=== PATIENT | male | born 1975 | race Caucasian/White ===

== ENCOUNTER 2020-09-23 06:49 | Outpatient (CLI) | payer OTHER, SELFPAY ==
--- NOTE | 2020-09-23 07:01 | US_ITS ---
WS: [id number] ULTRASOUND ABDOMEN LIMITED CLINICAL INFORMATION: ABDOMINAL PAIN, EVAULATE FOR UMBILICAL HERNIA COMPARISON: None. FINDINGS: Fat-containing umbilical hernia. No herniated bowel. Liver Size: Enlarged Craniocaudal length: 19.2 cm. Echogenicity: Normal. Surface nodularity: None. Mass (size and location): None. Bile ducts Intrahepatic ducts: Normal. Common bile duct diameter: 0.7 cm. Gallbladder Normal. Gallstones: None. Gallbladder sludge: None. Gallbladder wall thickening: None. Pericholecystic fluid: None. Sonographic Kaiser sign: Absent. Pancreas Normal as visualized. Right kidney: Normal. Hydronephrosis: None. Size: 11.7 cm x 7.3 cm x 5.9 cm. Abdominal aorta and IVC Visualized portions are normal. Ascites: None. US/US abdomen limited [id number] IMPRESSION: 1. Hepatomegaly with diffuse fatty infiltration. 2. Normal gallbladder and common bile duct. 3. No hydronephrosis in right kidney. 4. Fat-containing umbilical hernia. No herniated bowel.
== END 2020-09-23 06:50 | disposition home or self-care (01) ==
LOC: RAD 06:54
PROVIDERS: PCP Nurse Practitioner Family; Visit Provider Nurse Practitioner Family
DX: R10.9 Unspecified abdominal pain (principal); R16.0 Hepatomegaly, not elsewhere classified; K76.89 Other specified diseases of liver; K42.9 Umbilical hernia without obstruction or gangrene
CPT/HCPCS: 76705

== ENCOUNTER → 2020-10-10 08:07 | Outpatient (BNVA) | payer OTHER, SELFPAY | PROVIDERS: PCP Nurse Practitioner Family; Visit Provider Surgery | DX: Z20.822 Contact with and (suspected) exposure to COVID-19 (principal) | CPT/HCPCS: 87635 ==

== ENCOUNTER → 2020-10-11 14:06 | Outpatient (BNVA) | payer OTHER, SELFPAY | PROVIDERS: PCP Nurse Practitioner Family; Visit Provider Surgery | DX: Z01.812 Encounter for preprocedural laboratory examination (principal); Z20.822 Contact with and (suspected) exposure to COVID-19 | CPT/HCPCS: 87635 ==

== ENCOUNTER 2020-10-14 08:14 | Day surgery (SDC) | payer OTHER, SELFPAY ==
[2020-10-11 12:56] VITALS: BMI 36.3
[2020-10-14] VITALS (11 sets, daily range): BP systolic 123–149; BP diastolic 77–98; PULSE 59–76; RESP 15–19; TEMP 36.8–36.9; O2SAT 97–100
[2020-10-14] MEDS: sodium chloride 0.9% 1,000 ML 30 ML IV (09:00)
--- NOTE | 2020-10-14 09:07 | W.PM.OPSUD ---
Surgery/Procedure H&P Update DATE OF PROCEDURE: October 14, 2020 DATE H&P PERFORMED: 10/08/20 H&P UPDATE INFORMATION: I have reviewed H&P completed within last 30 days, I have examined patient prior to procedure and No changes to prior documentation PREOP DIAGNOSIS: Incarcerated umbilical hernia PLANNED PROCEDURE: Operation Date: 10/14/20 09:50 Proposed Procedures p Open Umbilical Hernia Repair w/ Mesh 06829 K42.0(Not Applicable) - Matty Pierre MD
--- NOTE | 2020-10-14 09:13 | ANES.PREANE2 ---
Pre-Anesthetic Assessment Pre-Anesthetic Assessment: Height/Weight: Height 1.68 m Weight 102.058 kg Temp Pulse Resp BP Pulse Ox 98.2 F 72 18 142/95 99 10/14/20 08:35 10/14/20 08:35 10/14/20 08:35 10/14/20 08:35 10/14/20 08:35 Preop Diagnosis: Incarcerated umbilical hernia Proposed Procedure: Operation Date: 10/14/20 09:50 Proposed Procedures p Open Umbilical Hernia Repair w/ Mesh 11903 K42.0(Not Applicable) - Matty Pierre MD Familial anesthetic complications: none Was Beta Fariba taken within 24 hours: N/A Was Clonidine taken within 24 hours: N/A Last intake: Intake Last Liquid Date 10/13/20 Last Liquid Time 23:30 Last Solid Date 10/13/20 Last Solid Time 19:30 Social: Social History: Tobacco and No alcohol Exam: Pre-Anes Outpt Exam: alert, oriented x 3, clear to auscultation bilaterally and regular rate & rhythm Airway: Cervical ROM: WNL MP: 1 Dentition: Full CV/HEM: CV/HEM: HTN GI: GI: GERD Metabolic: Metabolic: Hyperlipidemia and Morbid obesity Anesthetic Plan: ASA status: 2 Anesthesia: General Risk of > 500 ml blood loss (7ml/kg in children): No Meds/Allergies Current Medications: Current Medications Generic Name Dose Route Start Last Admin Trade Name Freq PRN Reason Stop Dose Admin Sodium Chloride 1,000 mls @ 30 ml s/hr 10/14/20 08:30 10/14/20 09:00 Sodium Chloride 0.9% IV 10/15/20 08:29 30 mls/hr .Q24H YSABEL Administration PFSH Anesthesia PFSH: Medical History GERD (gastroesophageal reflux disease) Hypertension Surgical History H/O esophagogastroduodenoscopy History of left inguinal hernia repair Family History Denies family history of Anesthesia complication Bleeding disorder Data Anesthesia Cardiac Studies: No Data to Display
--- NOTE | 2020-10-14 10:42 | SUR.PHASEI ---
PT AWAKE ALERT TAKING ICE CHIPS PT STATES ( SOME PAIN ) TO ABD BUT MOSTLY (FEELS STRANGE) PT OK WITH TAKING PO PAIN MED IN OPS. REPORT TO OPS NURSE.
[2020-10-14] MEDS: HYDROcodone-acetaminophen 5-325 mg Tablet 1 TAB PO (11:19)
--- NOTE | 2020-10-14 13:13 | P.OP_ITS ---
Operative Report Date of procedure: October 14, 2020 Pre-op Diagnosis: Incarcerated umbilical hernia Post-op Diagnosis: 2 x 2 centimeter incarcerated umbilical hernia containing omentum Procedure Done: Open primary repair of umbilical hernia Pathology: none sent Surgeon: Matty Pierre Anesthesia: General Condition: stable Disposition: PACU Procedure: The patient was taken to the operating room and intubated under general anesthesia after IV antibiotic had been administered. The abdomen was prepped and draped in a sterile manner. A 2 cm infraumbilical curvilinear incision was made using a 15 blade, a hernial sac dissected out using electro cautery and dissection with hemostats. The hernial sac was opened and omentum was reduced into the peritoneal cavity and the sac was excised. Interrupted sutures using 0 Vicryl was used to close the hernial defect without any tension. The subcutaneous tissue was approximated using 3-0 Vicryl and skin was closed using running subcuticular 4-0 Monocryl sutures. Dermabond was then applied and 10 mL of 0.5% Marcaine was infiltrated around the incision. A 2 x 2 gauze was then placed within the umbilicus and sterile dressings are applied. The patient was stable throughout the procedure.
--- NOTE | 2020-10-14 15:13 | ANE.PACU2 ---
Inpatient post-anesthesia follow up: Airway intact: Yes Vital signs: Temperature 98.5 F Pulse Rate 59 Respiratory Rate 15 Blood Pressure 123/77 Pulse Oximetry 100 Oxygen Delivery Me thod Room Air Oxygen Flow Rate 3 Fraction of Inspir ed Oxygen Hydration adequate: Yes Nausea and vomiting: No Pain level: 2 Mental status: Baseline
== END 2020-10-14 11:39 | disposition home or self-care (01) ==
PROVIDERS: PCP Nurse Practitioner Family; Visit Provider Surgery
PROC: (CPT 49587; principal; 2020-10-14 09:50)
DX: K42.0 Umbilical hernia with obstruction, without gangrene (principal); I10 Essential (primary) hypertension; K21.9 Gastro-esophageal reflux disease without esophagitis; E78.5 Hyperlipidemia, unspecified; E66.01 Morbid (severe) obesity due to excess calories; Z68.36 Body mass index [BMI] 36.0-36.9, adult
CPT/HCPCS: 49587; J0690; J1100; J2405; J2704; J2710; J3010; J3490; J7030

== ENCOUNTER 2021-07-10 03:23 | Emergency (ER) | payer OTHER, SELFPAY ==
[2021-07-10 03:29] VITALS: BP 145/93; PULSE 89; RESP 20; TEMP 36.6; O2SAT 100; BMI 35.2
--- NOTE | 2021-07-10 03:39 | CTR_ITS ---
PROCEDURE INFORMATION: Exam: CT Abdomen And Pelvis Without Contrast Exam date and time: 07/10/2021 4:07 AM Age: 45 years old Clinical indication: Abdominal pain; Prior surgery; Surgery type: Hernia repair; Patient HX: C/O left flank pain with nausea. ; Additional info: L flank pain TECHNIQUE: Imaging protocol: Computed tomography of the abdomen and pelvis without contrast. Radiation optimization: All CT scans at this facility use at least one of these dose optimization techniques: automated exposure control; mA and/or kV adjustment per patient size (includes targeted exams where dose is matched to clinical indication); or iterative reconstruction. COMPARISON: US abdomen limited [id number] 09/23/2020 7:08 AM RADIATION DOSE METRICS: Total DLP (mGy-cm): 1886.26 FINDINGS: Liver: Calcified hepatic granuloma. Gallbladder and bile ducts: Normal. No calcified stones. No ductal dilation. Pancreas: Normal. No ductal dilation. Spleen: Calcified splenic granuloma. Adrenal glands: Normal. No mass. Kidneys and ureters: Bilateral renal cysts. Mild left hydroureteronephrosis secondary to a 4 mm stone in the distal left ureter. Stomach and bowel: Unremarkable. No obstruction. No mucosal thickening. Appendix: No evidence of appendicitis. Intraperitoneal space: Unremarkable. No free air. No significant fluid collection. Vasculature: Unremarkable. No abdominal aortic aneurysm. Lymph nodes: Unremarkable. No enlarged lymph nodes. Urinary bladder: Unremarkable as visualized. Reproductive: Unremarkable as visualized. Bones/joints: Unremarkable. No acute fracture. Soft tissues: Query changes of prior left inguinal hernia repair. Fatty expansion of the right inguinal canal. CT/CT kidney stone [id number] IMPRESSION: Mild left hydroureteronephrosis secondary to a 4 mm stone in the distal left ureter. COMMENTS: Consistent with the [employer]'s Incidental Findings Committee white paper (J Am Jair Radiol 2018): Any incidental renal lesion less than 1 cm or classified as too small to characterize, or any incidental cystic renal lesion characterized as simple-appearing, is likely benign. No follow-up imaging is recommended for these lesions per consensus recommendations based on imaging criteria.
--- NOTE | 2021-07-10 03:40 | W.ED.MALEGU ---
HPI - Male Genitourinary General: Chief complaint: Urogenital-Male Stated complaint: Back pain Time Seen by Provider: 07/10/21 03:30 Source: patient Mode of arrival: ambulatory Limitations: no limitations History of Present Illness: 45-year-old male states he woke up 2 hours ago with sudden onset of left flank pain that is severe in nature states the pain is sharp rates it an 8 out of 10 radiates to his left groin he denies any worsening improving factors states it feels like is just and there palpation does not make it worse has had some nausea no vomiting denies any fever denies any difficulty urinating no history of kidney stones before. Associated symptoms: Deny nausea or vomiting Review of Systems Const: Denies: fever(s), chills, body aches or change in appetite Eyes: Denies: blurry vision or eye discomfort ENMT: Denies: throat pain or dental pain Card: Denies: chest pain Resp: Denies: dyspnea GI: Denies: abdominal pain, nausea, vomiting or diarrhea : Reports: flank pain Musc: Denies: neck pain or back pain Skin/Breast: Denies: rash Neuro: Denies: headache(s) Psych: Denies: depression [place]/Lymph: Denies: easy bruising All/Imm: Denies: urticaria PFSH ED PFSH: Medical History GERD (gastroesophageal reflux disease) Hypertension Surgical History H/O esophagogastroduodenoscopy History of left inguinal hernia repair History of umbilical hernia repair (10/14/20) Family History Denies family history of Anesthesia complication Bleeding disorder Physical Exam Const: COMMON NORMALS: no acute distress, patient oriented x3 and healthy appearing HENMT: COMMON NORMALS: normocephalic and atraumatic HEAD & SCALP: normocephalic and atraumatic Eye: COMMON NORMALS: Equal, round and reactive pupils present and EOMs intact bilaterally PUPIL: Yes Equal, round and reactive pupils present Neck/C-Spine: COMMON NORMALS: full ROM and supple Chest: COMMONS NORMALS: normal inspection of the chest and normal palpation of entire chest wall Resp: COMMON NORMALS: normal respiratory effort, No retractions, No use of accessory muscles and clear to auscultation bilaterally AUSCULTATION: clear to auscultation bilaterally Cardio: COMMON NORMALS: regular rate, regular rhythm and No murmurs present (Cardio) RATE: regular rate RHYTHM: regular rhythm GI: COMMON NORMALS: Normal to inspection, nondistended, normoactive bowel sounds present, Soft to palpation, non-tender and no masses PALPATION: Yes Soft to palpation Extremity: COMMON NORMALS: normal to inspection and full ROM Neuro: COMMON NORMALS: patient oriented x3, moves all extremities and no focal motor deficits Psych: COMMON NORMALS: mental status grossly normal, Normal thought process present and cooperative THOUGHT PROCESS: Normal thought process present Skin: COMMON NORMALS: no rashes or lesions noted and no wounds GENERAL SKIN EXAM: no rashes or lesions noted Course Vital Signs: Vital signs: Vital Signs Temperature 97.8 F 07/10/21 03:29 Pulse Rate 69 07/10/21 04:53 Respiratory Rate 16 07/10/21 04:53 Blood Pressure 127/80 07/10/21 04:53 Pulse Oximetry 96 07/10/21 04:53 MDM - Male Medical Decision Making Patient presents with flank pain found to have a kidney stone his pain is improved here he stable for discharge we will prescribe him Laie and get him follow-up with urology. Lab Data Radiology Impressions Abdomen/Pelvis CT 07/10/21 03:39 IMPRESSION: Mild left hydroureteronephrosis secondary to a 4 mm stone in the distal left ureter. COMMENTS: Consistent with the [employer]'s Incidental Findings Committee white paper (J Am Jair Radiol 2018): Any incidental renal lesion less than 1 cm or classified as too small to characterize, or any incidental cystic renal lesion characterized as simple-appearing, is likely benign. No follow-up imaging is recommended for these lesions per consensus recommendations based on imaging criteria. Laboratory Results Urine Color [place] (Yellow) 07/10/21 04:00 Urine Appearance Sl hazy (CLEAR) 07/10/21 04:00 Urine pH 5 (5-7) 07/10/21 04:00 Ur Specific [place] 1.030 (1.005-1.030) 07/10/21 04:00 Urine Protein 3+ (Negative) H 07/10/21 04:00 Urine Glucose (UA) Norm (Normal) 07/10/21 04:00 Urine Ketones Negative (Negative) 07/10/21 04:00 Urine Blood 2+ (Negative) H 07/10/21 04:00 Urine Nitrate Positive (Negative) H 07/10/21 04:00 Urine Bilirubin 2+ (Negative) H 07/10/21 04:00 Urine Urobilinogen 8 mg/dL (Negative) H 07/10/21 04:00 Ur Leukocyte Esterase Negative (Negative) 07/10/21 04:00 Urine RBC 5-10 /hpf (0-2) H 07/10/21 04:00 Urine WBC 0-4 /hpf (0-5) H 07/10/21 04:00 Ur Squamous Epith Cells 0-4 /hpf (0-5) H 07/10/21 04:00 Calcium Oxalate Crystal 5-10 /hpf H 07/10/21 04:00 Amorphous Sediment Trace /hpf 07/10/21 04:00 Urine Bacteria Trace /hpf (NONE) 07/10/21 04:00 Urine Mucus 2+ /hpf 07/10/21 04:00 Discharge Plan Discharge Patient Disposition: Home Clinical Impression: Kidney stone Condition: Stable Prescriptions: New hydrocodone-acetaminophen 5-325 mg tablet 1 tab PO Q6H PRN (Reason: pain) Qty: 14 0RF ondansetron 4 mg tablet,disintegrating 4 mg PO Q6H PRN (Reason: nausea and vomiting) Qty: 14 0RF No Action omeprazole 20 mg capsule,delayed release(DR/EC) 20 mg PO DAILY 0RF losartan 25 mg tablet 25 mg PO DAILY 0RF fenofibrate 150 mg capsule 150 mg PO DAILY 0RF hydrocodone-acetaminophen 5-325 mg tablet 1 tab PO Q6H PRN (Reason: pain) Qty: 20 0RF Zofran 4 mg tablet 4 mg PO Q6H PRN (Reason: nausea and vomiting) Qty: 20 0RF Colace 100 mg capsule 100 mg PO BID Qty: 30 0RF Discharge Orders: Discharge ED (Routine); Ordered 07/10/21 Ordered By: Miladys Paige Referrals: Henry Hobson MD [Physician] - 1-3 days Rizwana Hagen FNP [Primary Care Provider] - Discharge Diet: Advance as tolerated Discharge Activity: Resume usual activity Patient Instructions: Kidney Stones (ED), Opioid Safety Stand Alone Forms: Work/School Release Coding Level of Care Code ED Radiation Technician for Chg Fwd Exam Comprehensive
[2021-07-10] MEDS: sodium chloride 0.9% 1,000 ML 999 ML IV (03:57)
[2021-07-10 03:58] VITALS: RESP 18
[2021-07-10] MEDS: ondansetron 2 mg/ML SDV 2 mL 4 MG IVP (03:58)
[2021-07-10] MEDS: HYDROmorphone 1 mg/mL INJ 1 mL IVP (03:58)
[2021-07-10 04:16] LABS: Urine Appearance SL Hazy (CLEAR); Urine Color Orange (Yellow); pH Urine 5 (5-7)
[2021-07-10 04:17] LABS: Add Urine Microscopic? YES; Bilirubin Urine 2+ (Negative); Blood Urine 2+ (Negative); Glucose Urine UA Norm (Normal); Ketones Urine Negative (Negative); Leukocyte Esterase Urine Negative (Negative); Nitrate Urine Positive (Negative); Protein Urine 3+ (Negative); Urobilinogen Urine 8 mg/dL (Negative)
[2021-07-10 04:29] LABS: Bacteria Urine TRACE /hpf; Mucus Urine 2+ /hpf; Squamous Epithelial Cell Urine 0-4 /hpf (0-5); WBC Urine 0-4 /hpf (0-5)
[2021-07-10 04:30] LABS: Add Urine Culture? Yes; Amorphous Sediment Urine TRACE /hpf
[2021-07-10] MEDS: HYDROcodone-acetaminophen 5-325 mg Tablet 1 TAB PO (04:48)
[2021-07-10 04:53] VITALS: BP 127/80; PULSE 69; RESP 16; O2SAT 96
--- NOTE | 2021-07-10 15:37 | DCPLANNER ---
Addendum entered by Mini Jang 07/17/21 13:23: nurse case manager was told that when clinic called to schedule appointment, patient stated that he does not need the appointment at this time. No appointment was made at this time. Original Note: nurse case manager had message to schedule a follow up appointment for patient with urology. nurse case manager sent patients information to the front office staff at urology. Patients information will be printed and reviewed. Clinic will call patient with appointment information.
== END 2021-07-10 04:55 | disposition home or self-care (01) ==
PROVIDERS: Emergency Provider Emergency Medicine; PCP Nurse Practitioner Family
DX: N20.0 Calculus of kidney (principal); R11.0 Nausea
CPT/HCPCS: 74176; 81001; 87086; 96361; 96374; 96375; 99284; J1170; J2405; J7030

== ENCOUNTER 2021-07-10 13:27 | Emergency (ER) | payer OTHER, SELFPAY ==
[2021-07-10 14:14] VITALS: BP 162/115; RESP 20; TEMP 36.9; O2SAT 100; BMI 35.2
[2021-07-10 14:57] LABS: Basophils % 0.1 %; Hematocrit 46.4 % (42.0-52.0); Lymphocytes # 1.2 10^3/uL (0.8-4.8); Mean Corpuscular HGB Conc 34.5 g/dL (30.0-36.0); Mean Corpuscular Hemoglobin 30.9 pg (28.0-34.0); Mean Corpuscular Volume 89.6 fl (80-94); Mean Platelet Volume 11.8 fL (7.4-10.4); Monocytes # 0.7 10^3/uL (0.2-0.9); Monocytes % 5.6 %; Nucleated Red Blood Cells % 0 %; Platelet Count 229 10^3/cmm (130-400); Red Blood Count 5.18 10^6/uL (4.1-5.3); White Blood Count 12.7 10^3/uL (4.0-10.0)
[2021-07-10] MEDS: ketorolac 60 mg/2 mL INJ 30 MG IVP (15:29)
[2021-07-10 15:30] LABS: Add Urine Microscopic? NO; Charge for UA Resulting for Rev
[2021-07-10] MEDS: ondansetron 2 mg/ML SDV 2 mL 4 MG IVP (15:30)
[2021-07-10] MEDS: sodium chloride 0.9% 1,000 ML 999 ML IV (15:30)
[2021-07-10 15:31] LABS: Alanine Aminotransferase 33 U/L (0-41); Albumin Level 4.7 g/dL (3.5-5.2); Alkaline Phosphatase 66 IU/L (40-130); Anion Gap 18.1 (5-19); Aspartate Amino Transferase 25 U/L (0-40); Blood Urea Nitrogen 16 mg/dL (6-20); Carbon Dioxide 21 mmol/L (22-29); Chloride 104 mmol/L (98-107); Globulin 2.9 g/dL (1.3-4.6); Glomerular Filtration Rate 54.8 mL/min (90-130); Glucose 117 mg/dL (65-115); Osmolality Calculated 290 mOsm/kg (285-295); Potassium 4.1 mmol/L (3.5-5.1); Sodium 139 mmol/L (136-145); Total Protein 7.6 g/dL (6.6-8.7)
[2021-07-10 15:32] LABS: Creatinine Clr Calc Pharmacy 75.8522
--- NOTE | 2021-07-10 15:37 | XRR_ITS ---
PROCEDURE INFORMATION: Exam: XR Abdomen Exam date and time: 07/10/2021 4:05 PM Age: 45 years old Clinical indication: Abdominal pain; Localized; Left; Additional info: L distal ureter stone TECHNIQUE: Imaging protocol: XR of the abdomen. Views: Frontal supine view of the abdomen. 1 View. COMPARISON: CT kidney stone [id number] 07/10/2021 4:07 AM FINDINGS: Gastrointestinal tract: Normal. No bowel dilation. Vasculature: Multiple calcified phleboliths noted in the pelvis. Bones/joints: Unremarkable. Other findings: 4 mm ossification projects over the left superior aspect of the bladder, the suspected distal ureteral stone. Unclear if it remains in the distal ureter or has recently passed. XR/XR KUB [id number] IMPRESSION: 4 mm stone projects over the left superior aspect of the bladder. Unclear if it remains in the distal ureter or has recently passed.
[2021-07-10 15:42] LABS: Bilirubin Urine Neg (Negative); Blood Urine Neg (Negative); Glucose Urine UA Norm (Normal); Ketones Urine Negative (Negative); Leukocyte Esterase Urine Negative (Negative); Nitrate Urine Negative (Negative); Protein Urine Neg (Negative); Sulfosalicylic Acid Urine Negative (Negative); Urine Appearance Hazy (CLEAR); Urine Color Yellow (Yellow); Urobilinogen Urine Norm (Negative); pH Urine 8 (5-7)
[2021-07-10 15:44] VITALS: BP 159/96; PULSE 83; RESP 18; O2SAT 100
--- NOTE | 2021-07-10 15:53 | ED_ITS ---
HPI - Abdominal Pain General: Chief Complaint: Nausea/Vomiting/Diarrhea Stated Complaint: Has Vomited a bunch since he left Time Seen by Provider: 07/10/21 15:07 Source: patient and family Mode of arrival: ambulatory Limitations: no limitations History of Present Illness: Patient is a 45-year-old male who presents to ED today with a complaint of nausea and vomiting as well as continued pain to the left side of his lower abdomen. Patient was seen here earlier this morning and diagnosed with a 4 mm left distal ureter stone. Patient states pain seemed to be controlled upon discharge however shortly after he got home he began experiencing pain and nausea and felt like his nausea meds were not working well. Upon discharge he was sent home with prescriptions for Hydrocodone and Zofran. MD elicited complaint: abdominal pain Onset (ago): hour(s) Pain Consistency: constant Location: LLQ Severity: severe Quality: sharp Radiation: none Migration to: no migration Exacerbating factors: nothing Relieving factors: nothing Associated Symptoms: Reports nausea and vomiting; Denies change in bowel habits, chills, diarrhea, fever(s) and hematuria Review of Systems Const: Denies: fever(s), chills, body aches, fatigue or malaise Card: Denies: chest pain Resp: Denies: dyspnea GI: Reports: abdominal pain, nausea and vomiting; Denies: diarrhea or change in bowel habits : Reports: urinary urgency; Denies: flank pain, difficulty urinating, urinary frequency, urinary dribbling, difficulty starting urination, change in urine stream or hematuria Musc: Denies: back pain Skin/Breast: Denies: rash Neuro: Denies: headache(s) PFS ED PFSH: Medical History GERD (gastroesophageal reflux disease) Hypertension Surgical History H/O esophagogastroduodenoscopy History of left inguinal hernia repair History of umbilical hernia repair (10/14/20) Family History Denies family history of Anesthesia complication Bleeding disorder Physical Exam Const: COMMON NORMALS: patient oriented x3, no limitations and alert GENERAL APPEARANCE: cooperative and in distress (appears anxious/uncomfortable) Resp: COMMON NORMALS: normal respiratory effort and clear to auscultation bilaterally AUSCULTATION: clear to auscultation bilaterally Cardio: COMMON NORMALS: regular rate and regular rhythm RATE: regular rate RHYTHM: regular rhythm GI: COMMON NORMALS: Normal to inspection, nondistended, normoactive bowel sounds present, Soft to palpation, No hepatosplenomegaly present and no masses INSPECTION: Yes normal to inspection PALPATION: Yes Soft to palpation, Yes Tenderness to palpation present (GI) Details: LLQ and Yes No hepatosplenomegaly present : COMMON NORMALS: Yes no CVA tenderness BLADDER/KIDNEY EXAM: Yes no CVA tenderness Back/Pelvis: COMMON NORMALS: no CVA tenderness Extremity: GENERAL: Yes normal exam except as noted Neuro: COMMON NORMALS: patient oriented x3, moves all extremities, no focal motor deficits and no sensory deficits noted SENSORIUM/ORIENTATION: Yes alert Skin: COMMON NORMALS: no rashes or lesions noted GENERAL SKIN EXAM: no rashes or lesions noted Course Reevaluation(s): Reevaluation #1: After IV toradol/zofran patient states pain is much more tolerable and currently rating at 2/10. Vital Signs: Vital signs: Vital Signs Temperature 98.5 F 07/10/21 14:14 Pulse Rate 83 07/10/21 15:44 Respiratory Rate 18 07/10/21 15:44 Blood Pressure 159/96 07/10/21 15:44 Pulse Oximetry 100 07/10/21 15:44 MDM - Abdominal Pain Medical Decision Making Patient feeling much better after fluids, toradol, zofran. L distal ureter stone visualized on KUB-unknown location (still in distal ureter vs bladder) however I think given his continued hiscomfort this is most likely still in distal ureter. Patient's prescriptions from last time of hydrocodone/zofran were not contr olling his pain/nausea. We will write him for oxycodone and switch nausea meds to reglan. Will also add oral toradol and place him on flomax. Continued directions for pushing fluids, straining urine, and CM is working on his urology follow up. Strict return to ED precautions given. Vitals normal. Labs/UA fairly unremarkable at this time. Lab Data : 07/10/21 14:49 07/10/21 14:49 Labs/Radiology: Radiology Impressions KUB X-Ray 07/10/21 15:37 IMPRESSION: 4 mm stone projects over the left superior aspect of the bladder. Unclear if it remains in the distal ureter or has recently passed. Laboratory Results WBC 12.7 10^3/uL (4.0-10.0) H 07/10/21 14:49 RBC 5.18 10^6/uL (4.1-5.3) 07/10/21 14:49 Hgb 16.0 g/dL (11.7-16.6) 07/10/21 14:49 Hct 46.4 % (42.0-52.0) 07/10/21 14:49 MCV 89.6 fl (80-94) 07/10/21 14:49 MCH 30.9 pg (28.0-34.0) 07/10/21 14:49 MCHC 34.5 g/dL (30.0-36.0) 07/10/21 14:49 RDW 13.0 % (12.1-15.1) 07/10/21 14:49 Plt Count 229 10^3/cmm (130-400) 07/10/21 14:49 MPV 11.8 fL (7.4-10.4) H 07/10/21 14:49 Neut % (Auto) 85.0 % 07/10/21 14:49 Lymph % (Auto) 9.0 % 07/10/21 14:49 [place] % (Auto) 5.6 % 07/10/21 14:49 Eos % (Auto) 0.0 % 07/10/21 14:49 Baso % (Auto) 0.1 % 07/10/21 14:49 Neut # (Auto) 10.80 10^3/uL (1.8-7.7) H 07/10/21 14:49 Lymph # (Auto) 1.2 10^3/uL (0.8-4.8) 07/10/21 14:49 [place] # (Auto) 0.7 10^3/uL (0.2-0.9) 07/10/21 14:49 Eos # (Auto) 0.0 10^3/uL (0.0-0.8) 07/10/21 14:49 Baso # (Auto) 0.0 10^3/uL (0.0-0.1) 07/10/21 14:49 Nucleated RBC % (auto) 0 % 07/10/21 14:49 Nucleated RBCs # 0.0 /100WBC 07/10/21 14:49 Sodium 139 mmol/L (136-145) 07/10/21 14:49 Potassium 4.1 mmol/L (3.5-5.1) 07/10/21 14:49 Chloride 104 mmol/L (98-107) 07/10/21 14:49 Carbon Dioxide 21 mmol/L (22-29) L 07/10/21 14:49 Anion Gap 18.1 (5-19) 07/10/21 14:49 BUN 16 mg/dL (6-20) 07/10/21 14:49 Creatinine 1.4 mg/dL (0.7-1.2) H 07/10/21 14:49 GFR Calculation 54.8 mL/min (90-130) L 07/10/21 14:49 Glucose 117 mg/dL (65-115) H 07/10/21 14:49 Calculated Osmolality 290 mOsm/kg (285-295) 07/10/21 14:49 Calcium 10.0 mg/dL (8.5-10.5) 07/10/21 14:49 Total Bilirubin 1.0 mg/dL (0.15-1.2) 07/10/21 14:49 AST 25 U/L (0-40) 07/10/21 14:49 ALT 33 U/L (0-41) 07/10/21 14:49 Alkaline Phosphatase 66 IU/L (40-130) 07/10/21 14:49 Total Protein 7.6 g/dL (6.6-8.7) 07/10/21 14:49 Albumin 4.7 g/dL (3.5-5.2) 07/10/21 14:49 Globulin 2.9 g/dL (1.3-4.6) 07/10/21 14:49 Urine Color Yellow (Yellow) 07/10/21 15:16 Urine Appearance Hazy (CLEAR) A 07/10/21 15:16 Urine pH 8 (5-7) H 07/10/21 15:16 Ur Specific [place] 1.010 (1.005-1.030) 07/10/21 15:16 Urine Protein Neg (Negative) 07/10/21 15:16 Urine Glucose (UA) Norm (Normal) 07/10/21 15:16 Urine Ketones Negative (Negative) 07/10/21 15:16 Urine Blood Neg (Negative) 07/10/21 15:16 Urine Nitrate Negative (Negative) 07/10/21 15:16 Urine Bilirubin Neg (Negative) 07/10/21 15:16 Prot Sulfosalicylic Acd Negative (Negative) 07/10/21 15:16 Urine Urobilinogen Norm mg/dL (Negative) 07/10/21 15:16 Ur Leukocyte Esterase Negative (Negative) 07/10/21 15:16 Discharge Plan Discharge Patient Disposition: Home Clinical Impression: Calculus of distal left ureter Condition: Stable Prescriptions: New Percocet 5-325 mg tablet 1 tab PO Q4H PRN (Reason: pain) Qty: 14 0RF Reglan 10 mg tablet 10 mg PO Q6H PRN (Reason: nausea and vomiting) Qty: 10 0RF Flomax 0.4 mg capsule 0.4 mg PO DAILY Qty: 10 0RF No Action omeprazole 20 mg capsule,delayed release(DR/EC) 20 mg PO DAILY 0RF losartan 25 mg tablet 25 mg PO DAILY 0RF fenofibrate 150 mg capsule 150 mg PO DAILY 0RF hydrocodone-acetaminophen 5-325 mg tablet 1 tab PO Q6H PRN (Reason: pain) Qty: 20 0RF Zofran 4 mg tablet 4 mg PO Q6H PRN (Reason: nausea and vomiting) Qty: 20 0RF Colace 100 mg capsule 100 mg PO BID Qty: 30 0RF hydrocodone-acetaminophen 5-325 mg tablet 1 tab PO Q6H PRN (Reason: pain) Qty: 14 0RF ondansetron 4 mg tablet,disintegrating 4 mg PO Q6H PRN (Reason: nausea and vomiting) Qty: 14 0RF Discharge Orders: Discharge ED (Routine); Ordered 07/10/21 Ordered By: Lisette Apple Referrals: Rizwana Hagen FNP [Primary Care Provider] - Patient Instructions: Ureteral Stones (ED) Activity Restrictions/Additional Instructions: As we have discussed I have prescribed you some stronger medications in hopes that this will better control your pain. We will also do something different for nausea as you stated the Zofran did not seem to be helping. We will also place you on Toradol over the next 72 hours you may use as needed as it provided good relief here in the ED. you need to continue to push fluids as much as possible. Case management would be contacting you soon to set you up with urology follow-up appointment. You need to return to the emergency department for worsening or uncontrollable pain/nausea, fevers, inability to urinate, or any other concerns you may have. I hope you begin to feel better soon. Coding Level of Care Code ED Critical Care Physician Assistant for Amy López Exam Comprehensive
== END 2021-07-10 16:56 | disposition home or self-care (01) ==
PROVIDERS: Emergency Provider Physician Assistant; PCP Nurse Practitioner Family
DX: N20.1 Calculus of ureter (principal); R11.2 Nausea with vomiting, unspecified; R39.15 Urgency of urination
CPT/HCPCS: 36415; 74018; 80053; 81003; 85025; 96361; 96374; 96375; 99284; J1885; J2405; J7030